=== PATIENT | male | born 1990 | race Caucasian/White ===

== ENCOUNTER 2017-05-10 01:42 | Emergency (ER) | payer BC ==
[2017-05-10 01:57] VITALS: BP 137/78
--- NOTE | 2017-05-10 02:14 | EDM.PDOC ---
ED HPI GENERAL MEDICAL PROBLEM - General Chief Complaint: Skin Complaint Stated Complaint: INFECTION RIGHT KNEE Time Seen by Provider: 05/10/17 02:07 - History of Present Illness INITIAL COMMENTS - FREE TEXT/NARRATIVE: 26-year-old male presents to the emergency room with concerns of an infection in his right antecubital area. Patient recently started using IV drugs again, and has been injecting cocaine. This morning he developed significant redness and swelling in the right antecubital area. He does state that this has been improving during the course the day he has had no drainage from the area. Patient denies any fevers or chills he has had no chest pain or chest pressure no shortness of breath. 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 Right Arm Pain Score (Numeric/FACES): 2 - Related Data Allergies Allergy/AdvReac Type Severity Reaction Status Date / Time No Known Allergies Allergy Verified 05/10/17 01:52 Home Meds: Home Meds Clindamycin HCl 300 mg PO Q8H #21 capsule 05/10/17 [Rx] Past Medical History - Past Health History Medical/Surgical History: Denies Medical/Surgical History Musculoskeletal History: Reports: Other (See Below) Other Musculoskeletal History: ankle fracture as a kid Social & Family History - Tobacco Use Smoking Status *Q: Current Every Day Smoker Years of Tobacco use: 1 Packs/Tins Daily: 1 - Caffeine Use Caffeine Use: Reports: Energy Drinks - Recreational Drug Use Recreational Drug Use: Yes Drug Use in Last 12 Months: Yes Recreational Drug Type: Reports: Cocaine, Marijuana/Hashish ED ROS GENERAL - Review of Systems Review Of Systems: See Below Constitutional: Reports: No Symptoms. Denies: Fever, Chills Respiratory: Reports: No Symptoms Cardiovascular: Reports: No Symptoms Endocrine: Reports: No Symptoms GI/Abdominal: Reports: No Symptoms Neurological: Reports: No Symptoms Psychiatric: Denies: Anxiety, Depression ED EXAM, SKIN/RASH Exam: See Below Exam Limited By: No Limitations General Appearance: Alert, No Apparent Distress Head: Atraumatic, Normocephalic Neck: Normal Inspection, Supple, Non-Tender, Full Range of Motion Respiratory/Chest: No Respiratory Distress, Lungs Clear, Normal Breath Sounds Cardiovascular: Regular Rate, Rhythm, No Edema, No Murmur Skin: Other (Right antecubital area examined he's got a swollen area no fluctuation noted drainage. Nails examined no abnormalities) Location, Skin: Upper Extremity, Right, Other (Appears like a tract abscess in the arm no evidence of pyomyositis. He has no streaking up the arm. No reasonable place to attempt I&D) Associated features: Tenderness, Induration. No: Warmth, Lymphangitis Lymphatic: No Adenopathy Course - Vital Signs Last Recorded V/S: Last Vital Signs Temp 37.3 C 05/10/17 01:53 Pulse 86 05/10/17 01:53 Resp 16 05/10/17 01:53 BP 137/78 05/10/17 01:53 Pulse Ox 98 05/10/17 01:53 - Orders/Labs/Meds Meds: Medications Discontinued Medications Generic Name Dose Route Start Last Admin Trade Name Aury PRN Reason Stop Dose Admin Clindamycin HCl 300 mg 05/10/17 02:31 05/10/17 02:35 Cleocin PO 05/10/17 02:32 300 mg ONETIME ONE Administration - Re-Assessments/Exams Free Text/Narrative Re-Assessment/Exam: 05/10/17 02:33 In the patient's right antecubital area has a large 1 cm high by about a centimeter and a half round raised erythematous area slightly warm no fluctuant area. Through the existent puncture site I tried to open this little bit using a 16-gauge needle and opened it nearly 3/4 of a centimeter and could not find a cavity. At this point the patient will be started on antibiotics. Departure - Departure Time of Disposition: 02:36 Disposition: Home, Self-Care 01 Clinical Impression: Cellulitis of right arm - Discharge Information Prescriptions: Clindamycin HCl 300 mg PO Q8H #21 capsule Instructions: Cellulitis, Adult, [id number] Referrals: PCP,None [Primary Care Provider] - Forms: ED Department Discharge Additional Instructions: Return to the emergency room with any questions or problems or worsening symptoms. You can follow-up in the Hospital clinic for follow-up if needed. You have been started on antibiotic, clindamycin take 1 every 8 hours for 1 week. Start warm compresses to the area mildly hot water on a hand towel works well every couple hours while awake.
[2017-05-10] MEDS ORDERED: Clindamycin HCl 150 MG Cap PO ONE (02:31)
== END 2017-05-10 02:45 | disposition home or self-care (01) ==
LOC: JD.ED 01:42
DX: L03.113 Cellulitis of right upper limb (principal); F17.210 Nicotine dependence, cigarettes, uncomplicated
CPT/HCPCS: 99283; A9270